=== PATIENT | male | born 1965 | race Caucasian/White ===

== ENCOUNTER 2022-01-01 13:42 | Outpatient (REF) | payer OTHER, SELFPAY ==
[2022-01-01 14:06] LABS: MANUAL DIFF FLAG NO
[2022-01-01 14:41] LABS: Basophils Percent Auto 0.7 % (0-2); Eosinophils Absolute Auto 0.4 X10*3/uL (0.0-0.4); Eosinophils Percent Auto 7.3 % (0-4); Hemoglobin 13.2 g/dl (14.0-18.0); Imm Gran Abs Auto 0.02 X10*3/uL (0.00-0.03); Imm Gran Pct Auto 0.3 % (0.0-0.4); Lymphocytes Absolute Auto 1.5 X10*3/uL (1.2-4.9); Lymphocytes Percent Auto 25.9 % (20-40); Mean Corpuscular HGB Conc 34.7 g/dl (31.0-36.0); Mean Corpuscular Hemoglobin 32.9 pg (27.0-33.0); Mean Corpuscular Volume 94.8 fL (80.0-98.0); Mean Platelet Volume 11.3 fL (9.4-12.4); Monocytes Absolute Auto 0.5 X10*3/uL (0.1-1.2); Monocytes Percent Auto 8.5 % (2-11); Neutrophils Absolute Auto 3.4 x10*3/uL (2.0-8.3); Neutrophils Percent Auto 57.3 % (45-73); Platelet Count 211 X10*3/uL (160-400); Red Blood Count 4.01 X10*6/uL (4.60-5.80); Red Cell Distribution Width 14.2 % (11.0-16.0); White Blood Count 5.9 X10*3/uL (4.8-10.8)
[2022-01-01 15:07] LABS: Alanine Aminotransferase 13 U/L (0-40); Alkaline Phosphatase 98 U/L (39-117); Anion Gap 13 (12-20); Aspartate Amino Transferase 13 U/L (5-37); Bilirubin Total 0.2 mg/dL (0.0-1.0); Blood Urea Nitrogen 11 mg/dL (9-16); Calcium 8.9 mg/dL (8.4-10.2); Carbon Dioxide 24 mmol/L (22-29); Chloride 106 mmol/L (96-108); Estimated Glomerular Filt Rate > 60; Glucose Random 127 mg/dL (60-115); Sodium 139 mmol/L (135-145); Total Protein 6.8 g/dL (6.5-8.0)
[2022-01-01 15:42] LABS: Appearance Urine Clear; Color Urine Yellow; Glucose Urine UA Negative (Negative); Leukocyte Esterase Urine Negative (Negative); Nitrite Urine Negative (Negative); Specific Gravity - Urine 1.025 (1.005-1.025); Urine Blood Negative (Negative); Urine Ketones Trace mg/dL (Negative); Urine Protein Negative (Neg-Trace)
[2022-01-01 15:44] LABS: Bacteria Urine None Seen (None Seen); Hyaline Casts Urine 0-2 /LPF (0-2); RBC Urine 0-2 /HPF (0-2); Squamous Epithelial Cell Urine 0-2 /HPF (0-2); WBC Urine 0-5 /HPF (0-5)
[2022-01-01 17:47] LABS: CT PCR NOT DETECTED (Not Detect.); NG PCR NOT DETECTED (Not Detect.)
[2022-01-02 08:39] LABS: Syphilis Screen Nonreactive (Nonreactive)
[2022-01-02 19:52] LABS: HIV RNA PCR Qn Copies NOT DETECTED copies/mL (NOT DETECTED); HIV RNA PCR Qn Log Copies NOT DETECTED (NOT DETECTED)
[2022-01-04 00:47] LABS: TS Negative Control Passed; TS Panel A 6; TS Panel B 4; TS Positive Control Passed; TSpotTB Borderline (Negative)
[2022-01-04 09:17] LABS: HCV Log PCR <1.18 NOT DETECTED Log IU/mL (NOT DETECTED); HepC Viral Load <15 NOT DETECTED IU/mL (NOT DETECTED)
[2022-01-05 16:27] LABS: Absolute CD3 Count 1280 cells/uL (840-3060); Absolute CD4 Count 574 cells/uL (490-1740); Absolute CD8 Count 725 cells/uL (180-1170); Absolute Lymphocytes 1528 cells/uL (850-3900); CD4 CD8 Ratio 0.79 (0.86-5.00); Percent CD3 Cells 84 % (57-85); Percent CD4 Cells 38 % (30-61); Percent CD8 Cells 47 % (12-42)
== END 2022-01-01 13:43 | disposition home or self-care (01) ==
LOC: HO.LAB 13:42
PROVIDERS: PCP Family Medicine; Visit Provider Family Medicine
DX: B20 Human immunodeficiency virus [HIV] disease (principal)
CPT/HCPCS: 80053; 81001; 85025; 86359; 86360; 86481; 86780; 87491; 87522; 87536; 87591

== ENCOUNTER 2022-07-20 10:32 | Outpatient (REF) | payer OTHER, SELFPAY ==
--- NOTE | ~2022-07-20 | XR_ITS ---
EXAMINATION: XR KNEE, RIGHT CLINICAL INFORMATION: Chronic pain. COMPARISON: Radiographs dated 04/02/2014. TECHNIQUE: Frontal, lateral and axial views of the right knee are submitted. FINDINGS: There is mild bony demineralization. There is moderate asymmetric narrowing of the medial joint space compartment. The lateral and patellofemoral joint space compartments are well-maintained. There is mild peripheral osteophyte formation of the medial and patellofemoral joint space compartments. No fracture, dislocation or significant joint effusion is seen. There are small osteophytes arising from the lateral and medial spurs of the median tibial eminence. There is no foreign body. XR/XR knee RT 3V IMPRESSION: 1. There is moderate osteoarthritic change of the medial joint space compartment of the right knee, and mild osteoarthritic changes seen of the patellofemoral compartment. 2. No fracture, dislocation or joint effusion is seen.
== END 2022-07-20 10:33 | disposition home or self-care (01) ==
LOC: HO.XRAY 10:32
PROVIDERS: PCP Family Medicine; Visit Provider Family Medicine
DX: M25.561 Pain in right knee (principal)
CPT/HCPCS: 73562

== ENCOUNTER 2022-09-07 11:04 | Outpatient (REF) | payer OTHER, SELFPAY | END 2022-09-07 11:05 | disposition home or self-care (01) | LOC: HO.HOSX 11:04 | PROVIDERS: Visit Provider Physician Assistant | DX: Z13.89 Encounter for screening for other disorder (principal) ==

== ENCOUNTER 2022-10-08 09:11 | Outpatient (AMB) | payer OTHER, SELFPAY ==
--- NOTE | 2022-10-08 09:30 | MHC.OFFVIS ---
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 Patient reports having off and on for 3 years, denies injury. His pain becomes worse with laying on his right side and is unable to kneel down. His pain is located in the anterior aspect of knee. No previous tx. Also c/o of left shoulder. 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 He states he has intermittent pain in the anterior aspect of his knee which is aggravated with laying on his right side, stairs and walking long distances. He is unable to kneel down with his right knee. He denies sustaining any injury and has not had any treatment in the past. He does not have a history of diabetes. [facility] Medical History (Updated 10/08/22 @ 09:37 by Adebayo Menendez PA-C) HIV disease Social History (Updated 10/08/22 @ 09:35 by MIRLANDE Crespo) Patient Tobacco Use Status: Current everyday Tobacco user Current occupational status: unemployed Review of Systems Const All systems reviewed & are unremarkable except as noted in HPI and below Physical Exam Vital Signs: BMI result Body Mass Index 44.1 Const General: cooperative, healthy appearing, comfortable, no acute distress, well developed and alert Orientation/consciousness: patient oriented x3 HEENT Head: Yes normal to inspection, Yes normocephalic and Yes atraumatic Eyes General: appearance normal, both eyes and all related structures Resp Effort & Inspection: normal respiratory effort and able to speak in complete sentences Cardio Rate: regular rate Peripheral pulses: Peripheral pulses 2+ throughout GI Palpation (GI): Soft to palpation Skin Lesions: no lesions Rashes: no rashes Neuro General: patient oriented x3 Extrem Other: Right knee: Skin intact, no erythema or joint effusion. Tenderness along the medial joint line. Full ROM with crepitus. Negative Karlee?s. No ligamentous laxity. NVI. Office Procedures Joint Injection/Drain Joint Injection/Drain Primary Site: right knee Prep: site was prepped using aseptic technique, ethochloride spray was applied and injection warnings given Injected: 80 mg of, DepoMedrol, with 8 mL of, 1% plain lidocaine and in the joint Approach Used: anterolateral Procedure: The patient tolerated the procedure well and there was some relief with the local anesthesia Coding - Glenohumeral/Tronchanteric Bursa/Intraarticular Procedure code (CPT) selection complete Results Reviewed Results Reviewed: 10/08/22 09:39 Lidocaine HCl 2 % MPF [Xylocaine 2 % MPF] 5 ml .ROUTE .STK-MED ONE methylPREDNISolone acetate [DEPO-MedroL] 80 mg .ROUTE .STK-MED ONE xrays of the right knee obtained 07/20/22 show moderate tricompartmental oa Assessment & Plan Assessment & Plan (1) Osteoarthritis of right knee: Code(s): M17.11 - Unilateral primary osteoarthritis, right knee Plan We discussed options today which include steroid injection. They did consent to move forward with the right knee injection, which was tolerated well. I recommended rest, ice and elevation and OTC anti-inflammatories PRN for discomfort. I also referred him a course of physical therapy in the office today. If symptoms persist or worsens over the next 6-8 weeks, patient will contact the office, otherwise follow-up as needed. Orders: Orders PT Evaluation and Treatment Today M17.11 - Unilateral primary osteoarthritis, right knee Patient Instructions: Scribed for Adebayo Menendez PA-C, by Harshad Lane biomedical engineering technologist, on 10/08/2022 at 9:00 AM EST. IAdebayo PA-C, have personally reviewed and agree with the information entered by the scribe. Coding Level of Care Code New Pt Level 3 (50250) Diagnoses Osteoarthritis of right knee M17.11 CPT Codes Coding - Joint 7: 96523 - Glenohumeral/Tronchanteric Bursa/Intraarticular ([id number])
[2022-10-08 09:35] VITALS: BMI 44.1
== END 2022-10-08 09:51 | disposition home or self-care (01) ==
PROVIDERS: PCP Family Medicine; Visit Provider Physician Assistant
DX: M17.11 Unilateral primary osteoarthritis, right knee (principal)
CPT/HCPCS: 20610; 99203

== ENCOUNTER → 2022-10-08 09:28 | Outpatient (BNVA) | payer OTHER, SELFPAY | PROVIDERS: PCP Family Medicine; Visit Provider Physician Assistant | DX: M17.11 Unilateral primary osteoarthritis, right knee (principal) | CPT/HCPCS: 20610; 99202; J1040 ==

== ENCOUNTER 2023-03-09 13:31 | Outpatient (REF) | payer OTHER, SELFPAY ==
[2023-03-09 16:09] LABS: MANUAL DIFF FLAG NO
[2023-03-09 16:16] LABS: Basophils Absolute Auto 0.1 X10*3/uL (0.0-0.2); Basophils Percent Auto 0.7 % (0-2); Eosinophils Absolute Auto 0.5 X10*3/uL (0.0-0.4); Hematocrit 42.6 % (42.0-52.0); Hemoglobin 14.3 g/dl (14.0-18.0); Imm Gran Abs Auto 0.03 X10*3/uL (0.00-0.03); Imm Gran Pct Auto 0.3 % (0.0-0.4); Lymphocytes Absolute Auto 2.2 X10*3/uL (1.2-4.9); Lymphocytes Percent Auto 23.5 % (20-40); Mean Corpuscular HGB Conc 33.6 g/dl (31.0-36.0); Mean Corpuscular Hemoglobin 32.5 pg (27.0-33.0); Mean Corpuscular Volume 96.8 fL (80.0-98.0); Mean Platelet Volume 11.6 fL (9.4-12.4); Monocytes Absolute Auto 0.6 X10*3/uL (0.1-1.2); Monocytes Percent Auto 6.6 % (2-11); Neutrophils Absolute Auto 5.9 x10*3/uL (2.0-8.3); Neutrophils Percent Auto 63.9 % (45-73); Platelet Count 234 X10*3/uL (160-400); Red Cell Distribution Width 13.7 % (11.0-16.0); White Blood Count 9.2 X10*3/uL (4.8-10.8)
[2023-03-09 16:32] LABS: Alanine Aminotransferase 13 U/L (0-40); Albumin Level 4.2 g/dL (3.5-5.0); Alkaline Phosphatase 99 U/L (39-117); Anion Gap 14 (12-20); Aspartate Amino Transferase 14 U/L (5-37); Bilirubin Total 0.4 mg/dL (0.0-1.0); Blood Urea Nitrogen 14 mg/dL (9-16); Calcium 10.1 mg/dL (8.4-10.2); Carbon Dioxide 23 mmol/L (22-29); Chloride 105 mmol/L (96-108); Estimated Glomerular Filt Rate > 60; Glucose Random 132 mg/dL (60-115); Potassium 3.9 mmol/L (3.3-5.1); Sodium 138 mmol/L (135-145); Total Protein 7.9 g/dL (6.5-8.0)
[2023-03-10 04:24] LABS: Syphilis Screen Nonreactive (Nonreactive)
[2023-03-10 05:58] LABS: CT PCR NOT DETECTED (Not Detect.); NG PCR NOT DETECTED (Not Detect.)
[2023-03-10 10:44] LABS: Absolute CD3 Count 1765 cells/uL (840-3060); Absolute CD4 Count 546 cells/uL (490-1740); Absolute CD8 Count 1231 cells/uL (180-1170); Absolute Lymphocytes 2261 cells/uL (850-3900); CD4 CD8 Ratio 0.44 (0.86-5.00); Percent CD3 Cells 78 % (57-85); Percent CD4 Cells 24 % (30-61); Percent CD8 Cells 54 % (12-42)
[2023-03-11 06:44] LABS: HIV RNA PCR Qn Copies NOT DETECTED copies/mL (NOT DETECTED); HIV RNA PCR Qn Log Copies NOT DETECTED (NOT DETECTED)
[2023-03-11 15:09] LABS: HCV Log PCR <1.18 NOT DETECTED Log IU/mL (NOT DETECTED); HepC Viral Load <15 NOT DETECTED IU/mL (NOT DETECTED)
[2023-03-11 19:09] LABS: TS Negative Control Passed; TS Panel A 5; TS Panel B 9; TS Positive Control Passed; TSpotTB Positive (Negative)
== END 2023-03-09 13:32 | disposition home or self-care (01) ==
LOC: HO.HHCL 13:31
PROVIDERS: Visit Provider Student in an Organized Health Care Education/Training Program
DX: Z21 Asymptomatic human immunodeficiency virus [HIV] infection status (principal); Z20.2 Contact with and (suspected) exposure to infections with a predominantly sexual mode of transmission
CPT/HCPCS: 0353U; 36415; 80053; 85025; 86359; 86360; 86481; 86780; 87522; 87536

== ENCOUNTER 2023-06-29 14:34 | Outpatient (REF) | payer OTHER, SELFPAY ==
[2023-06-29 16:11] LABS: Estimated Average Glucose 114 mg/dL; Hemoglobin A1c % 5.6 % (<6.0)
[2023-06-29 16:31] LABS: Alanine Aminotransferase 15 U/L (0-40); Albumin Level 4.1 g/dL (3.5-5.0); Alkaline Phosphatase 102 U/L (39-117); Anion Gap 13 (12-20); Aspartate Amino Transferase 13 U/L (5-37); Bilirubin Total 0.3 mg/dL (0.0-1.0); Blood Urea Nitrogen 11 mg/dL (9-16); Calcium 9.4 mg/dL (8.4-10.2); Carbon Dioxide 26 mmol/L (22-29); Chloride 105 mmol/L (96-108); Cholesterol 171 mg/dL (<200); Estimated Glomerular Filt Rate > 60; Glucose Random 100 mg/dL (60-115); HDL Cholesterol 41 mg/dL (>40); LDL Cholesterol Calculated 105 mg/dL (<100); Potassium 4.4 mmol/L (3.3-5.1); Sodium 140 mmol/L (135-145); Total Protein 7.7 g/dL (6.5-8.0); Triglycerides 125 mg/dL (<150)
[2023-06-29 16:48] LABS: TSH reflex Free T4 1.21 uIU/mL (0.32-4.0)
[2023-06-29 17:30] LABS: Reflex LDLD? No
== END 2023-06-29 14:35 | disposition home or self-care (01) ==
LOC: HO.HHCL 14:34
PROVIDERS: Visit Provider Family Medicine
DX: Z13.6 Encounter for screening for cardiovascular disorders (principal); R73.01 Impaired fasting glucose; Z21 Asymptomatic human immunodeficiency virus [HIV] infection status
CPT/HCPCS: 36415; 80053; 80061; 83036; 84443

== ENCOUNTER 2023-10-19 13:10 | Outpatient (REF) | payer OTHER, SELFPAY ==
[2023-10-19 16:51] LABS: MANUAL DIFF FLAG NO
[2023-10-19 17:01] LABS: Basophils Percent Auto 0.4 % (0-2); Eosinophils Absolute Auto 0.4 X10*3/uL (0.0-0.4); Eosinophils Percent Auto 5.7 % (0-4); Hematocrit 40.6 % (42.0-52.0); Hemoglobin 13.3 g/dl (14.0-18.0); Imm Gran Abs Auto 0.03 X10*3/uL (0.00-0.03); Imm Gran Pct Auto 0.4 % (0.0-0.4); Lymphocytes Absolute Auto 1.9 X10*3/uL (1.2-4.9); Lymphocytes Percent Auto 26.3 % (20-40); Mean Corpuscular HGB Conc 32.8 g/dl (31.0-36.0); Mean Corpuscular Hemoglobin 32.9 pg (27.0-33.0); Mean Corpuscular Volume 100.5 fL (80.0-98.0); Mean Platelet Volume 11.5 fL (9.4-12.4); Monocytes Absolute Auto 0.6 X10*3/uL (0.1-1.2); Monocytes Percent Auto 8.9 % (2-11); Neutrophils Absolute Auto 4.2 x10*3/uL (2.0-8.3); Neutrophils Percent Auto 58.3 % (45-73); Platelet Count 226 X10*3/uL (160-400); Red Blood Count 4.04 X10*6/uL (4.60-5.80); Red Cell Distribution Width 14.4 % (11.0-16.0); White Blood Count 7.2 X10*3/uL (4.8-10.8)
[2023-10-19 17:21] LABS: Alanine Aminotransferase 14 U/L (0-40); Alkaline Phosphatase 93 U/L (39-117); Anion Gap 14 (12-20); Aspartate Amino Transferase 17 U/L (5-37); Bilirubin Total 0.3 mg/dL (0.0-1.0); Blood Urea Nitrogen 17 mg/dL (9-16); Calcium 9.6 mg/dL (8.4-10.2); Carbon Dioxide 23 mmol/L (22-29); Chloride 107 mmol/L (96-108); Estimated Glomerular Filt Rate > 60; Glucose Random 111 mg/dL (60-115); Potassium 4.6 mmol/L (3.3-5.1); Sodium 139 mmol/L (135-145); Total Protein 7.3 g/dL (6.5-8.0)
[2023-10-20 04:53] LABS: HBc Num1 5.01 S/CO (0.00-0.79); HBsAGNum1 0.26 S/CO (0.00-0.99); Hepatitis B Surface Antigen Negative (Negative); ~Hepatitis B Surface Antibody REACTIVE (Nonreactive)
[2023-10-20 05:36] LABS: HBc Num2 4.99 S/CO; HBc Num3 4.98 S/CO; Hepatitis B Core Antibody Reactive (Nonreactive)
[2023-10-21 11:09] LABS: Rubeola IgG (Measles) >300.00 AU/mL
[2023-10-22 15:13] LABS: HIV RNA PCR Qn Copies NOT DETECTED copies/mL (NOT DETECTED); HIV RNA PCR Qn Log Copies NOT DETECTED (NOT DETECTED)
== END 2023-10-19 13:11 | disposition home or self-care (01) ==
LOC: HO.HHCL 13:10
PROVIDERS: Visit Provider Student in an Organized Health Care Education/Training Program
DX: Z21 Asymptomatic human immunodeficiency virus [HIV] infection status (principal)
CPT/HCPCS: 36415; 80053; 85025; 86359; 86360; 86704; 86706; 86735; 86762; 86765; 87340; 87536

== ENCOUNTER 2023-10-22 09:32 | Outpatient (AMB) | payer OTHER, SELFPAY ==
--- NOTE | 2023-10-22 08:00 | MHC.OFFVIS ---
Intake Visit Reasons: lung screening Allergies No Known Allergies [No Known Allergies*] Allergy (Unverified 10/08/22 09:33) HPI HPI lung screening: Details: Initial visit for this 57yo smoker with a 20PYH. Patient has been smoking since age 16 for 41 years at 1/2ppd. Currently down to 4 a day. . Denies marijuana use. Denies second hand smoke exposure. 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 . Denies known family history of lung cancer. Denies personal history of cancers. Denies chest CT in last year. . Denies recent travel outside the [place]. History of latent TB. Took medication. Denies recent respiratory illness or recent hospitalization for respiratory issues. Denies testing positive for COVID. Denies receiving COVID Vaccine. . Denies fever, chills, new/worsening cough, hemoptysis, hoarseness or dysphagia. Denies significant chest pain, significant dyspnea or unintentional weight loss. Patient Lung Cancer Screening Questionnaire reviewed with patient by provider. . Shared Decision Making Completed. Patient meets criteria. Discussed in detail with patient, the risk vs benefit of LDCT screening. Patient consents to proceed with scan. Discussed smoking cessation. [facility] Medical History (Updated 10/22/23 @ 10:10 by Flory Barcenas PA-C) HIV disease History of hepatitis C Anemia, chronic disease Vitamin D deficiency Depression Tubular adenoma of colon History of latent tuberculosis Nicotine dependence, cigarettes, uncomplicated Surgical History (Updated 08/20/23 @ 11:02 by Flory Barcenas PA-C) History of colonoscopy Social History (Updated 10/22/23 @ 10:11 by Flory Barcenas PA-C) Patient Tobacco Use Status: Current everyday Tobacco user Tobacco use type: Cigarette Years Smoked: (onset 16yo, 1/2ppd x 41yrs, now 1/4ppd, 20PYH) Current occupational status: unemployed Assessment & Plan Assessment & Plan (1) Nicotine dependence, cigarettes, uncomplicated: Comment: (current smoker - onset 16yo, 1/2ppd x 41yrs, now 1/4ppd, 20PYH) Code(s): F17.210 - Nicotine dependence, cigarettes, uncomplicated Category: Medical Plan: - SDM visit completed today in office. - Patient meets criteria for LDCT for lung cancer screening purposes and is asymptomatic. - Smoking cessation counseling offered. Patients can always call [phone]. - Will arrange for a LDCT scan of the chest for screening purposes at [facility]. - Risks, benefits, and alternatives were discussed in detail and the patient agrees to proceed. - Risks discussed include but are not limited to: radiation exposure, anxiety during testing and while awaiting results, false negatives, false positives and possibility of additional intervention such as further imaging or surgical procedures for benign disease. - Benefits are obviously detection of lung cancer at an early stage which can lead to improved outcomes. - Discussed the importance of screening program compliance with adherence to yearly LDCT scan as scheduled - or sooner interval scans for personalized screening regimen. - Discussed follow up plan. Our office will send a letter discussing results and if needed set up phone call and office visit based on CT findings. - Patient educated on results categorization and the management decisions for suspicious findings potentially found on the screening LDCT scan. Any patient with a Lung RADS score of 3 or 4 will be reviewed by a multidisciplinary team at [facility] to form a plan of action in regards to scan findings. - If further work up is warranted for a suspicious lung finding this will be followed by the Lung Cancer Screening program in conjunction with the Thoracic Surgery Department at [facility]. - A copy of the office note and LDCT will be sent to the patient's PCP - as well as documentation on any associated further plans of care. - Incidental findings on LDCT are the PCP's responsibility. These findings are indicated with an S finding on the LDCT Assessment. A note discussing the findings will be sent to the PCP who is then responsible for further management. - All questions answered.? Coding Level of Care Code Lung Cancer Screening G0296 Diagnoses Nicotine dependence, cigarettes, uncomplicated F17.210
== END 2023-10-22 12:54 | disposition home or self-care (01) ==
PROVIDERS: PCP Family Medicine; Referring Provider Family Medicine; Visit Provider Physician Assistant Medical
DX: F17.210 Nicotine dependence, cigarettes, uncomplicated (principal)
CPT/HCPCS: G0296

== ENCOUNTER → 2023-10-22 11:00 | Outpatient (REF) | payer OTHER, SELFPAY ==
--- NOTE | ~2023-10-22 | CT_ITS ---
EXAMINATION: CT LOW-DOSE SCREENING CHEST WITHOUT CONTRAST CLINICAL INFORMATION: Personal history of nicotine dependence. The patient is a current smoker with a 43 pack-year history of smoking. COMPARISON: X-ray chest 11/13/2015. TECHNIQUE: Multidetector volumetric CT imaging of the chest is performed on a Siemens SOMATOM Definition scanner without contrast using low dose technique. Additional 2D coronal and sagittal reformatted images and axial 3D maximum intensity projection (MIP) images are generated on the CT workstation. This CT examination was performed using dose optimization techniques as appropriate, variously including the following: *Automated exposure control *Adjustment of mA and/or kV according to patient size (this includes techniques or standardized protocols for targeted exams where dose is matched to indication/reason for exam; i.e. extremities or head) *Use of iterative reconstruction technique TOTAL EXAM DLP: 58 mGy-cm. CTDIvol: 1.75 mGy. FINDINGS: PULMONARY NODULES: No suspicious pulmonary nodules. LUNGS: Lungs bilaterally symmetrically expanded. No there is mild emphysema and bronchial thickening without bronchiectasis. Lingular atelectasis is present. No effusion or pneumothorax. Central airways patent. MEDIASTINUM: No mediastinal, hilar or axillary adenopathy or free fluid collection. CORONARY ARTERY CALCIFICATION: Marked. THYROID GLAND: 1.9 cm nodule is present in the inferior left thyroid. Dedicated thyroid ultrasound recommended for further evaluation. CARDIOVASCULAR STRUCTURES: Aortic and heart size normal. No pericardial effusion. CHEST WALL/AXILLA: Moderate bilateral asymmetric gynecomastia. UPPER ABDOMEN: Included portions of the solid organs in the upper abdomen unremarkable on noncontrast imaging. OSSEOUS STRUCTURES: No suspicious focal findings. CT/CT lung screening IMPRESSION: 1. No suspicious pulmonary nodules are seen. 2. Incidental findings as described above. ASSESSMENT: 1. Lung-RADS Category 1: Negative. There are no nodules or there are definitely benign nodules. N/A 2. Lung-RADS Category S: Negative. There are no clinically significant or potentially clinically significant findings not related to the lungs requiring urgent additional evaluation. RECOMMENDATION: Continued routine annual low-dose CT lung screening in 1 year is recommended. An order for CT CHEST LOW DOSE CANCER SCREENING ([id number]) can be placed. Electronically signed by: Elbert Zee MD 12/03/2023 01:38 PM EDT
== END | disposition home or self-care (01) ==
LOC: HO.CT
PROVIDERS: PCP Family Medicine; Visit Provider Physician Assistant Medical
DX: Z12.2 Encounter for screening for malignant neoplasm of respiratory organs (principal); F17.210 Nicotine dependence, cigarettes, uncomplicated
CPT/HCPCS: 71271; G0296

== ENCOUNTER 2024-04-04 11:00 | Outpatient (REF) | payer OTHER, SELFPAY ==
[2024-04-04 13:13] LABS: MANUAL DIFF FLAG NO
[2024-04-04 13:20] LABS: Basophils Absolute Auto 0.1 X10*3/uL (0.0-0.2); Basophils Percent Auto 0.8 % (0-2); Eosinophils Absolute Auto 0.3 X10*3/uL (0.0-0.4); Eosinophils Percent Auto 3.4 % (0-4); Hematocrit 42.1 % (42.0-52.0); Hemoglobin 14.4 g/dl (14.0-18.0); Imm Gran Abs Auto 0.03 X10*3/uL (0.00-0.03); Imm Gran Pct Auto 0.4 % (0.0-0.4); Lymphocytes Percent Auto 25.4 % (20-40); Mean Corpuscular HGB Conc 34.2 g/dl (31.0-36.0); Mean Corpuscular Hemoglobin 32.4 pg (27.0-33.0); Mean Corpuscular Volume 94.6 fL (80.0-98.0); Mean Platelet Volume 10.6 fL (9.4-12.4); Monocytes Absolute Auto 0.6 X10*3/uL (0.1-1.2); Monocytes Percent Auto 7.5 % (2-11); Neutrophils Percent Auto 62.5 % (45-73); Platelet Count 266 X10*3/uL (160-400); Red Blood Count 4.45 X10*6/uL (4.60-5.80); Red Cell Distribution Width 14.1 % (11.0-16.0); White Blood Count 7.9 X10*3/uL (4.8-10.8)
[2024-04-04 13:39] LABS: Alanine Aminotransferase 18 U/L (0-40); Alkaline Phosphatase 91 U/L (39-117); Anion Gap 9 (12-20); Aspartate Amino Transferase 16 U/L (5-37); Bilirubin Total 0.4 mg/dL (0.0-1.0); Blood Urea Nitrogen 17 mg/dL (9-16); Calcium 9.1 mg/dL (8.4-10.2); Carbon Dioxide 29 mmol/L (22-29); Chloride 106 mmol/L (96-108); Estimated Glomerular Filt Rate > 60; Glucose Random 111 mg/dL (60-115); Potassium 4.6 mmol/L (3.3-5.1); Sodium 139 mmol/L (135-145); Total Protein 7.3 g/dL (6.5-8.0)
[2024-04-05 18:03] LABS: HIV RNA PCR Qn Copies NOT DETECTED copies/mL (NOT DETECTED); HIV RNA PCR Qn Log Copies NOT DETECTED (NOT DETECTED)
[2024-04-08 15:13] LABS: Absolute CD3 Count 1678 cells/uL (840-3060); Absolute CD4 Count 557 cells/uL (490-1740); Absolute CD8 Count 1167 cells/uL (180-1170); Absolute Lymphocytes 2044 cells/uL (850-3900); CD4 CD8 Ratio 0.48 (0.86-5.00); Percent CD3 Cells 82 % (57-85); Percent CD4 Cells 27 % (30-61); Percent CD8 Cells 57 % (12-42)
== END 2024-04-04 11:01 | disposition home or self-care (01) ==
LOC: HO.HHCL 11:00
PROVIDERS: Visit Provider Family Medicine
DX: Z21 Asymptomatic human immunodeficiency virus [HIV] infection status (principal)
CPT/HCPCS: 36415; 80053; 85025; 86359; 86360; 87536

== ENCOUNTER 2024-06-22 12:20 | Outpatient (REF) | payer OTHER, SELFPAY ==
[2024-06-22 13:33] LABS: MANUAL DIFF FLAG NO
[2024-06-22 13:42] LABS: Basophils Percent Auto 0.6 % (0-2); Eosinophils Absolute Auto 0.2 X10*3/uL (0.0-0.4); Eosinophils Percent Auto 2.8 % (0-4); Hemoglobin 13.5 g/dl (14.0-18.0); Imm Gran Abs Auto 0.03 X10*3/uL (0.00-0.03); Imm Gran Pct Auto 0.4 % (0.0-0.4); Lymphocytes Absolute Auto 1.8 X10*3/uL (1.2-4.9); Lymphocytes Percent Auto 26.8 % (20-40); Mean Corpuscular HGB Conc 33.8 g/dl (31.0-36.0); Mean Corpuscular Hemoglobin 32.1 pg (27.0-33.0); Mean Corpuscular Volume 95.2 fL (80.0-98.0); Mean Platelet Volume 11.2 fL (9.4-12.4); Monocytes Absolute Auto 0.4 X10*3/uL (0.1-1.2); Monocytes Percent Auto 6.3 % (2-11); Neutrophils Absolute Auto 4.2 x10*3/uL (2.0-8.3); Neutrophils Percent Auto 63.1 % (45-73); Platelet Count 225 X10*3/uL (160-400); Red Cell Distribution Width 14.3 % (11.0-16.0); White Blood Count 6.7 X10*3/uL (4.8-10.8)
[2024-06-22 14:01] LABS: Alanine Aminotransferase 20 U/L (0-40); Albumin Level 4.1 g/dL (3.5-5.0); Alkaline Phosphatase 88 U/L (39-117); Anion Gap 12 (12-20); Aspartate Amino Transferase 16 U/L (5-37); Bilirubin Total 0.4 mg/dL (0.0-1.0); Blood Urea Nitrogen 18 mg/dL (9-16); Calcium 9.3 mg/dL (8.4-10.2); Carbon Dioxide 27 mmol/L (22-29); Chloride 108 mmol/L (96-108); Estimated Glomerular Filt Rate > 60; Glucose Random 139 mg/dL (60-115); Potassium 4.7 mmol/L (3.3-5.1); Sodium 142 mmol/L (135-145); Total Protein 7.1 g/dL (6.5-8.0)
[2024-06-25 08:09] LABS: HIV RNA PCR Qn Copies NOT DETECTED copies/mL (NOT DETECTED); HIV RNA PCR Qn Log Copies NOT DETECTED (NOT DETECTED)
[2024-06-28 16:02] LABS: Absolute CD3 Count 1481 cells/uL (840-3060); Absolute CD4 Count 595 cells/uL (490-1740); Absolute CD8 Count 914 cells/uL (180-1170); Absolute Lymphocytes 1709 cells/uL (850-3900); CD4 CD8 Ratio 0.65 (0.86-5.00); Percent CD3 Cells 87 % (57-85); Percent CD4 Cells 35 % (30-61); Percent CD8 Cells 53 % (12-42)
== END 2024-06-22 12:21 | disposition home or self-care (01) ==
LOC: HO.HHCL 12:20
PROVIDERS: Visit Provider Student in an Organized Health Care Education/Training Program
DX: Z21 Asymptomatic human immunodeficiency virus [HIV] infection status (principal)
CPT/HCPCS: 36415; 80053; 85025; 86359; 86360; 87536

== ENCOUNTER 2024-11-10 15:51 | Outpatient (REF) | payer OTHER, SELFPAY ==
--- NOTE | ~2024-11-10 | CT_ITS ---
CLINICAL HISTORY: F17.210 - Nicotine dependence, cigarettes, uncomplicated CT lung cancer screening (LDCT) Comparison: CT/IL/SR - CT LUNG SCREENING - 10/22/23 10:20 EDT Technique: Axial CT images of the chest using low-dose technique. Referring provider counseled the patient on shared decision-making for LDCT screening. Additional counseling was provided on smoking cessation. Effective radiation dose total: DLP 42.8 mGycm, CTDIvol 1.5 mGy. Findings: Lung: No evidence of pneumonia or edema. No suspicious pulmonary nodules. 17 mm left thyroid nodule is present. Coronary artery calcifications: Moderate Limited upper abdomen: Unremarkable Other: None Impression: 1. Coronary artery disease. 2. Left thyroid nodule which could be further assessed with ultrasound, if clinically indicated. 3. LungRADS 1: Negative exam. Continue annual screening with low dose Chest CT in 12 months. ##L1## Category 1: Normal; continue annual screening Category 2: Benign appearance or behavior, continue annual screening Category 3: Probably benign, [address] recommended Category 4A: Suspicious, [address] recommended; may consider PET/CT Category 4B: Suspicious, Additional diagnostics and/or tissue sampling recommended Category 4X: Suspicious, Additional diagnostics and/or tissue sampling recommended Category 0: Recalls (incomplete screen due to Incomplete coverage, Noise, Respiratory motion, Expiration, Obscured by acute abnormality) This document has been electronically signed by: Lori Bauer MD on 11/13/2024 13:33:37
== END 2024-11-10 15:52 | disposition home or self-care (01) ==
LOC: HO.CT 15:51
PROVIDERS: PCP Family Medicine; Visit Provider Physician Assistant Medical
DX: Z12.2 Encounter for screening for malignant neoplasm of respiratory organs (principal); F17.210 Nicotine dependence, cigarettes, uncomplicated
CPT/HCPCS: 71271

== ENCOUNTER → 2024-11-10 15:54 | Outpatient (BNV) | payer OTHER, SELFPAY | PROVIDERS: PCP Family Medicine; Visit Provider Radiology Diagnostic Radiology | DX: Z12.2 Encounter for screening for malignant neoplasm of respiratory organs (principal); F17.210 Nicotine dependence, cigarettes, uncomplicated | CPT/HCPCS: 71271 ==

== ENCOUNTER 2024-12-11 11:22 | Outpatient (REF) | payer OTHER, SELFPAY ==
[2024-12-11 13:02] LABS: MANUAL DIFF FLAG NO
[2024-12-11 13:15] LABS: Hematocrit 40.1 % (42.0-52.0); Hemoglobin 13.3 g/dl (14.0-18.0); Imm Gran Abs Auto 0.02 X10*3/uL (0.00-0.03); Imm Gran Pct Auto 0.3 % (0.0-0.4); Lymphocytes Absolute Auto 1.4 X10*3/uL (1.2-4.9); Mean Corpuscular HGB Conc 33.2 g/dl (31.0-36.0); Mean Corpuscular Hemoglobin 32.0 pg (27.0-33.0); Mean Corpuscular Volume 96.6 fL (80.0-98.0); NRBC Abs Auto 0.000 X10*3/uL (0.0-0.012); NRBC Pct Auto 0.0 /100WBC (0.0-0.2); Platelet Count 252 X10*3/uL (160-400); Red Blood Count 4.15 X10*6/uL (4.60-5.80); White Blood Count 7.3 X10*3/uL (4.8-10.8)
[2024-12-11 13:31] LABS: Hemoglobin A1C 143.8524 umol/L; Total Hemoglobin (HGBA1C) 3467.8106 umol/L
[2024-12-11 13:50] LABS: Alanine Aminotransferase 18 U/L (0-40); Albumin Level 4.3 g/dL (3.5-5.0); Alkaline Phosphatase 93 U/L (39-117); Anion Gap 9 (12-20); Aspartate Amino Transferase 20 U/L (5-37); Blood Urea Nitrogen 15 mg/dL (9-16); Calcium 9.4 mg/dL (8.4-10.2); Carbon Dioxide 31 mmol/L (22-29); Chloride 104 mmol/L (96-108); Cholesterol 143 mg/dL (<200); Estimated Glomerular Filt Rate > 60; HDL Cholesterol 40 mg/dL (>40); Potassium 4.8 mmol/L (3.3-5.1); Sodium 139 mmol/L (135-145); Total Protein 7.5 g/dL (6.5-8.0); Triglycerides 169 mg/dL (<150)
[2024-12-11 14:07] LABS: HBS Num1 254.79 mIU/mL (0-7.99); HBsAGNum1 0.42 S/CO (0.00-0.99); Hepatitis B Surface Antigen Negative (Negative); ~HepC Num1 13.62 S/CO (0.00-0.79); ~Hepatitis B Surface Antibody REACTIVE (Nonreactive); ~Hepatitis C Antibody Reactive (Nonreactive)
[2024-12-11 14:28] LABS: Reflex LDLD? No
[2024-12-13 15:25] LABS: HCV Log PCR <1.18 NOT DETECTED Log IU/mL (NOT DETECTED); HepC Viral Load <15 NOT DETECTED IU/mL (NOT DETECTED)
[2024-12-13 15:58] LABS: HIV RNA PCR Qn Copies NOT DETECTED copies/mL (NOT DETECTED); HIV RNA PCR Qn Log Copies NOT DETECTED (NOT DETECTED)
[2024-12-14 05:10] LABS: TS Negative Control Passed; TS Panel A 17; TS Panel B 16; TS Positive Control Passed; TSpotTB Positive (Negative)
[2024-12-15 15:10] LABS: Absolute CD3 Count 1276 cells/uL (840-3060); Absolute CD8 Count 586 cells/uL (180-1170); Percent CD3 Cells 82 % (57-85); Percent CD8 Cells 38 % (12-42)
== END 2024-12-11 11:23 | disposition home or self-care (01) ==
LOC: HO.HHCL 11:22
PROVIDERS: PCP Family Medicine; Referring Provider Family Medicine; Visit Provider Student in an Organized Health Care Education/Training Program
DX: Z21 Asymptomatic human immunodeficiency virus [HIV] infection status (principal); Z11.59 Encounter for screening for other viral diseases; Z12.5 Encounter for screening for malignant neoplasm of prostate
CPT/HCPCS: 36415; 80053; 80061; 83036; 85025; 86359; 86360; 86481; 86592; 86706; 86803; 87340; 87522; 87536

== ENCOUNTER 2025-01-10 08:07 | Outpatient (REF) | payer OTHER, SELFPAY ==
--- NOTE | ~2025-01-10 | XR_ITS ---
CLINICAL HISTORY: M17.11 - Unilateral primary osteoarthritis, right knee 3 view right knee and 1 view bilateral knees standing Comparison: DX/SR - XR KNEE 3 VIEWS RIGHT - 07/20/22 10:49 EDT Findings: Mild marginal osteophyte formation is seen about the right knee. Moderate medial femorotibial joint space narrowing is present. Mild left medial femorotibial joint space narrowing is also noted. No acute fracture or dislocation is identified. Soft tissue structures appear within normal limits. IMPRESSION: 1. Moderate degenerative changes in the right knee, predominantly at the medial femorotibial compartment. 2. Mild left medial femorotibial joint space narrowing. This document has been electronically signed by: Patito Coulter on 01/12/2025 09:39:22
== END 2025-01-10 08:08 | disposition home or self-care (01) ==
LOC: HO.HOSX 08:07
PROVIDERS: Visit Provider Physician Assistant
DX: M17.0 Bilateral primary osteoarthritis of knee (principal)
CPT/HCPCS: 20610; 73562; 99212; J0665; J1100; J2003

== ENCOUNTER 2025-01-10 13:26 | Outpatient (AMB) | payer OTHER, SELFPAY ==
--- NOTE | 2025-01-10 13:54 | MHC.OFFVIS ---
Intake Visit Reasons: OV- Right knee pain Intake Note: Dimas is a 59 year old male who presents today for a follow up of right knee OA, last injection 10/08/22. Patient reports last injection was helpful. He is looking to have an injection in both of his knees. Senior Sustainability Consultant Required: Yes Senior Sustainability Consultant Language: Blow Off Worker Name: Kacy Luna [phone] Allergies No Known Allergies (No Known Allergies*) Allergy (Unverified 01/10/25 13:59) Medication List - Last Reconciled 01/10/25 by Adebayo Menendez PA-C cholecalciferol (vitamin D3) 50 mcg PO QAM dolutegravir-lamivudine 50-300 mg (Dovato) 1 tab PO DAILY ketoconazole 2% appl topical DAILY xfzzxfqh-yyg-hfhi fum-folic ac 7.5 mg iron-400 mcg 1 tab PO QAM trazodone 100 mg PO QPM zolpidem 5 mg PO BEDTIME HPI HPI OV- Right knee pain: Details: 59-year-old gentleman presents to the office today for bilateral knee pain. Right is worse than left. He has a sensation in the front of the knee where he gets grinding when he goes up and downstairs. He has had injections by me in 2022 for the right knee which was helpful. [facility] Medical History HIV disease History of hepatitis C Anemia, chronic disease Vitamin D deficiency Depression Tubular adenoma of colon History of latent tuberculosis Nicotine dependence, cigarettes, uncomplicated Surgical History History of colonoscopy Social History Patient Tobacco Use Status: Current everyday Tobacco user Tobacco use type: Cigarette Years Smoked: (onset 16yo, 1/2ppd x 41yrs, now 1/4ppd, 20PYH) Current occupational status: unemployed Review of Systems Const All systems reviewed & are unremarkable except as noted in HPI and below Physical Exam Const General: cooperative, healthy appearing, comfortable, no acute distress, well developed and alert Orientation/consciousness: patient oriented x3 HEENT Head: Yes normal to inspection, Yes normocephalic and Yes atraumatic Eyes General: appearance normal, both eyes and all related structures Resp Effort & Inspection: normal respiratory effort and able to speak in complete sentences Cardio Rate: regular rate Peripheral pulses: Peripheral pulses 2+ throughout GI Palpation (GI): Soft to palpation Skin Lesions: no lesions Rashes: no rashes Neuro General: patient oriented x3 Extrem Other: Right knee: Skin intact, no erythema or joint effusion. Tenderness along the medial joint line with lateral retropatellar tenderness. Full ROM with crepitus. Negative Karlee?s. No ligamentous laxity. NVI. Left knee normal to inspection no joint effusion or erythema. He has full range of motion. Mild tenderness in the along the medial joint line. Calf is supple and nontender neurovascularly intact. Office Procedures AMB Joint Injection/Aspiration Joint Injection/Aspiration Primary Site: left knee Secondary Site: right knee Prep: site was prepped using aseptic technique, ethochloride spray was applied and injection warnings given Injected: 40 mg of, with 3 mL of, 1% plain lidocaine, 0.25% bupivacaine, in the joint and decadron Approach Used: anterolateral Procedure: The patient tolerated the procedure well and there was some relief with the local anesthesia Coding - Glenohumeral/Tronchanteric Bursa/Intraarticular Procedure code (CPT) selection complete Results Reviewed Results Reviewed: X-rays of the right knee obtained in the office today and reviewed by me show mild medial compartment arthritis with patellofemoral arthritis Assessment & Plan Assessment & Plan (1) Osteoarthritis of knees, bilateral: Code(s): M17.0 - Bilateral primary osteoarthritis of knee Category: Medical Plan: We discussed options today, which include steroid injection. The patient did consent to move forward with the bilateral knee injection, which was tolerated well.? I recommended rest, ice and elevation and OTC antiinflammatories prn for discomfort. If symptoms persist over the next 6-8 weeks, they will contact our office, otherwise, prn Orders: Orders XR knee RT 3V Today M17.11 - Unilateral primary osteoarthritis, right knee Coding Level of Care Code Est Pt Level 3 (02765) Complex EM visit Add On G2211 Diagnoses Osteoarthritis of knees, bilateral M17.0 CPT Codes Coding - Joint 7: 19576 - Glenohumeral/Tronchanteric Bursa/Intraarticular ([id number])
== END 2025-01-10 14:19 | disposition home or self-care (01) ==
LOC: HO.HOS 13:26
PROVIDERS: PCP Family Medicine; Visit Provider Physician Assistant
DX: M17.0 Bilateral primary osteoarthritis of knee (principal)
CPT/HCPCS: 20610; 99213

== ENCOUNTER → 2025-01-10 13:28 | Outpatient (BNV) | payer OTHER, SELFPAY | PROVIDERS: Visit Provider Radiology Vascular & Interventional Radiology | DX: M17.11 Unilateral primary osteoarthritis, right knee (principal) | CPT/HCPCS: 73562 ==